=== PATIENT | female | born 1985 | race Caucasian/White ===

== ENCOUNTER 2016-12-05 20:29 | Emergency (ER) | payer OTHER ==
[2016-12-05 22:13] VITALS: BP 134/84
== END 2016-12-05 22:13 | disposition home or self-care (01) ==
LOC: ED 20:29
DX: H60.502 Unspecified acute noninfective otitis externa, left ear (principal); J06.9 Acute upper respiratory infection, unspecified

== ENCOUNTER 2017-06-28 09:07 | Emergency (ER) | payer OTHER ==
[~2017-06-28] VITALS: Ht 165.1 cm; Wt 123.5 kg
[2017-06-28 09:29] VITALS: BP 142/86; Ht 165.1 cm; Wt 123.5 kg
== END 2017-06-28 10:47 | disposition home or self-care (01) ==
LOC: ED 09:07
DX: J02.9 Acute pharyngitis, unspecified (principal); R05 Cough

== ENCOUNTER 2018-09-04 14:03 | Emergency (ER) | payer OTHER ==
[~2018-09-04] VITALS: Ht 162.6 cm; Wt 129.7 kg
[2018-09-04 14:22] VITALS: Ht 162.6 cm; Wt 129.7 kg
[2018-09-04 16:29] VITALS: BP 126/76
== END 2018-09-04 16:29 | disposition home or self-care (01) ==
LOC: ED 14:03
DX: J02.9 Acute pharyngitis, unspecified (principal)

== ENCOUNTER 2019-01-16 07:45 | Emergency (ER) | payer OTHER ==
[~2019-01-16] VITALS: Ht 162.6 cm; Wt 128.8 kg
[2019-01-16 07:48] VITALS: Ht 162.6 cm; Wt 128.8 kg
[2019-01-16 09:34] VITALS: BP 126/78
== END 2019-01-16 09:34 | disposition home or self-care (01) ==
LOC: ED 07:45
DX: J06.9 Acute upper respiratory infection, unspecified (principal)

== ENCOUNTER 2019-06-28 18:08 | Emergency (ER) | payer OTHER ==
[~2019-06-28] VITALS: Ht 162.6 cm; Wt 132.4 kg
[2019-06-28 18:22] VITALS: BP 150/80; Ht 162.6 cm; Wt 132.4 kg
== END 2019-06-28 19:18 | disposition home or self-care (01) ==
LOC: ED 18:08
DX: M25.461 Effusion, right knee (principal); E66.9 Obesity, unspecified; Z68.43 Body mass index [BMI] 50.0-59.9, adult